=== PATIENT | female | born 1950 | race African-American/Black ===

== ENCOUNTER 2021-05-14 08:39 | Emergency (ER) | payer MEDICARE ==
[~2021-05-14] VITALS: Ht 167.6 cm; Wt 75.0 kg
[2021-05-14 11:45] LABS: BASOPHILS % 1.3 % (0.0-2.0); EOSINOPHILS % 1.4 % (0.0-5.0); HEMATOCRIT. 38.2 % (36.0-48.0); HEMOGLOBIN. 12.2 g/dL (12.0-16.0); LYMPHOCYTES % 42.7 % (20.0-50.0); MEAN CORPUSCULAR HEMOGLOBIN 27.2 pg (28.0-32.0); MEAN CORPUSCULAR VOLUME 85.4 fL (81.0-99.0); MONOCYTES % 12.7 % (2.0-8.0); NEUTROPHILS % 41.9 % (40.0-76.0); PLATELET 269 x1000/uL (130-400); RED BLOOD CELL COUNT 4.47 mill/uL (4.2-5.4); RED CELL DISTRIBUTION WIDTH 14.4 % (11.6-14.6)
[2021-05-14 11:49] LABS: CHLORIDE 108 mEq/L (98-107)
[2021-05-14] MEDS ORDERED: KETOROLAC 60MG/2ML VIAL IM ONE (13:15)
[2021-05-14] MEDS ORDERED: ACETAMINOPHEN 325MG TABLET PO ONE (13:15)
[2021-05-14 13:57] VITALS: BP 115/69
== END 2021-05-14 14:04 | disposition home or self-care (01) ==
LOC: ER 08:39
DX: R51.9 Headache, unspecified (principal); I10 Essential (primary) hypertension; Z86.39 Personal history of other endocrine, nutritional and metabolic disease
CPT/HCPCS: 36415; 70450; 80053; 85025; 93005; 96372; 99284; J1885